=== PATIENT | male | born 1940 | race Asian ===

== ENCOUNTER 2017-07-22 14:11 | Outpatient (CLI) | payer OTHER ==
[2017-07-22 14:31] LABS: PLATELET COUNT 287 K/uL (142-355)
[2017-07-22 14:53] LABS: POTASSIUM 4.2 mmol/L (3.6-5.2); SODIUM 136 mmol/L (136-145)
== END 2017-07-22 19:50 | disposition home or self-care (01) ==
LOC: LAB 14:11
PROVIDERS: Family Medicine
DX: I10 Essential (primary) hypertension (principal); E78.00 Pure hypercholesterolemia, unspecified; E05.90 Thyrotoxicosis, unspecified without thyrotoxic crisis or storm; C61 Malignant neoplasm of prostate; E55.9 Vitamin D deficiency, unspecified
CPT/HCPCS: 80053; 80061; 81000; 82043; 82306; 82570; 83735; 84439; 84443; 84550; 85027

== ENCOUNTER 2018-05-24 16:40 | Outpatient (CLI) | payer OTHER ==
[2018-05-24 17:10] LABS: PLATELET COUNT 298 K/uL (142-355)
[2018-05-24 17:30] LABS: POTASSIUM 3.5 mmol/L (3.6-5.2)
== END 2018-05-24 21:45 | disposition home or self-care (01) ==
LOC: LABW 16:40
PROVIDERS: Family Medicine
DX: E78.00 Pure hypercholesterolemia, unspecified (principal)
CPT/HCPCS: 36415; 80053; 80061; 84154; 85027

== ENCOUNTER 2018-05-25 08:53 | Outpatient (CLI) | payer OTHER | END 2018-05-25 21:55 | disposition home or self-care (01) | LOC: LAB 08:53 | DX: E78.00 Pure hypercholesterolemia, unspecified (principal); I10 Essential (primary) hypertension; N39.0 Urinary tract infection, site not specified | CPT/HCPCS: 81000; 87086; 87088 ==

== ENCOUNTER 2019-10-18 11:33 | Emergency (ER) | payer OTHER ==
[~2019-10-18] VITALS: Ht 172.7 cm; Wt 84.4 kg
[2019-10-18] MEDS ORDERED: VITA D-1000 PO (11:47)
[2019-10-18] MEDS ORDERED: DOXYCYC MONO100 MG PO (11:48)
[2019-10-18] MEDS ORDERED: COMBIGAN0.2 MG/0.5 OPTH (11:49)
[2019-10-18] MEDS ORDERED: TRAVATAN Z0.004 % IO (11:49)
[2019-10-18] MEDS ORDERED: AMLODIPINE BESYLATE PO (11:50)
[2019-10-18] MEDS ORDERED: CASODEX50 MG PO (11:50)
[2019-10-18 11:51] VITALS: TEMP 97.7
[2019-10-18] MEDS ORDERED: TAMSULOSIN0.4 MG PO (11:51)
[2019-10-18] MEDS ORDERED: LISI20TA11 PO (11:51)
[2019-10-18] MEDS ORDERED: SIMV20TA2 PO (11:51)
[2019-10-18 12:30] LABS: PLATELET COUNT 439 K/uL (142-355)
[2019-10-18 12:41] LABS: POTASSIUM 3.9 mmol/L (3.6-5.2)
[2019-10-18 13:02] LABS: PARTIAL THROMBOPLASTIN TIME 25.7 SECONDS (24.5-33.6)
[2019-10-18 14:25] VITALS: BP 190/104
== END 2019-10-18 14:27 | disposition home or self-care (01) ==
LOC: ED 11:33
PROVIDERS: Family Medicine
DX: R42 Dizziness and giddiness (principal); R51 Headache
CPT/HCPCS: 80053; 81000; 85027; 85610; 85730; 99283

== ENCOUNTER 2020-03-26 08:58 | Outpatient (CLI) | payer OTHER ==
[~2020-03-26 08:58] MED LIST: AMLODIPINE BESYLATE PO; CASODEX50 MG PO; COMBIGAN0.2 MG/0.5 OPTH; DOXYCYC MONO100 MG PO; LISI20TA11 PO; SIMV20TA2 PO; TAMSULOSIN0.4 MG PO; TRAVATAN Z0.004 % IO; VITA D-1000 PO
== END 2020-03-26 19:22 | disposition home or self-care (01) ==
LOC: US 08:58
DX: I10 Essential (primary) hypertension (principal); R09.89 Other specified symptoms and signs involving the circulatory and respiratory systems; R42 Dizziness and giddiness

== ENCOUNTER 2020-07-31 09:53 | Outpatient (CLI) | payer OTHER | END 2020-07-31 20:17 | disposition home or self-care (01) | LOC: RESP 09:53 | DX: I49.9 Cardiac arrhythmia, unspecified (principal); I10 Essential (primary) hypertension; E05.90 Thyrotoxicosis, unspecified without thyrotoxic crisis or storm; E78.00 Pure hypercholesterolemia, unspecified ==